=== PATIENT | female | born 1940 | race African-American/Black ===

== ENCOUNTER 2016-09-03 11:14 | Emergency (ER) | payer MEDICARE ==
[~2016-09-03 11:14] MED LIST: ALBUTEROL17 GM INH; CHLORTHALIDONE25 MG PO; LOPRESSOR PO; NAPROXEN375 MG PO; PRINIVIL40 MG PO; ZANTAC150 M1 PO
== END 2016-09-03 11:15 | disposition home or self-care (01) ==
LOC: SED 11:14
DX: L02.01 Cutaneous abscess of face (principal); E11.9 Type 2 diabetes mellitus without complications
CPT/HCPCS: 10060; 87070; 87205; 99283